=== PATIENT | male | born 1930 | race Caucasian/White ===

== ENCOUNTER 2019-12-01 09:03 | Day surgery (SDC) | payer MEDICARE, OTHER ==
[~2019-12-01 09:03] MED LIST: CHONDR SU A NA/HYALUR INTRAOC KIT (SURGICARE) ONE; EPINEPHRINE INJ/PF 1 MG/1 ML AMPULE ONE; KETOROLAC TROMETHAMINE 0.45% 4 DROP/0.4 ML DROPERETTE OS PRN; LIDOCAINE 1%/PHENYLEPHRINE 1.5% 1 ML VIAL ONE
[2019-12-01] MEDS ORDERED: ONDANSETRON HCL INJ/PF 4 MG/2 ML SDV ONE (09:09)
[2019-12-01] MEDS ORDERED: MIDAZOLAM 2 MG/2 ML INJ ONE (09:10)
[2019-12-01] MEDS ORDERED: FENTANYL CITRATE INJ/PF 100 MCG/2 ML AMPUL ONE (09:10)
[2019-12-01] MEDS: TETRACAINE HCL 0.5% OPH SOLN 4 ML OS PRN ×3 (09:45→10:16)
[2019-12-01] MEDS: TROPICAMIDE 1% OPH SOLN 15 ML OS PRN ×3 (09:45→10:12)
[2019-12-01] MEDS: CYCLOPENTOLATE 0.2%/PHENYLEPHRINE 1% OPH SOLN 2 ML OS PRN ×3 (09:46→10:12)
[2019-12-01] MEDS: BESIFLOXACIN HCL 0.6% OPH SUSP 5 ML BOTTLE OS PRN ×4 (09:46→10:38)
[2019-12-01] MEDS: DORZOLAMIDE HCL 2%/TIMOLOL MALEAT 0.5% OPH SOLN 10 ML OS PRN ×2 (10:38)
--- NOTE | 2019-12-01 12:01 | Operative Report ---
Operative Report-[facility] Operative Report: DATE OF SURGERY: 12/01/2019 PREOPERATIVE DIAGNOSIS: Cataracts, left eye POSTOPERATIVE DIAGNOSIS: Cataract, left eye OPERATION: Cataract extraction with insertion of an IOL of the left eye. Intraocular Lens Model: [23.0 sn60wf] Reason for surgery is difficulty seeing road signs SURGEON: Dorian Rodriguez MD ANESTHESIA: Topical PROCEDURE: After obtaining appropriate consent, the patient's left eye was prepped and draped in a sterile fashion as well as the surgeon in the sterile manner and cataract surgery was started. First a paracentesis blade was used to make a side-port incision. Viscoelastic was used to inflate the anterior chamber. Next a 2.4 mm incision was made with a 2.4 mm blade, clear corneal temporarily. A continuous capsulorrhexis was made using a cystotome and Utrata forceps. Following this hydrodissection was carried out to make the lens fully loose and mobile and it was rotated 90 degrees. Following this, a divide and conquer technique was used to phacoemulsify the lens. The remaining cortex was removed with an irrigation/aspiration. Provisc was instilled into the capsular bag to inflate the bag.The intraocular lens was placed. The remaining viscoelastic material was removed with irrigation/aspiration. Following this, the incision was found to be watertight. Besivance and Cosopt was instilled into the eye and a protective shield was placed over the eye. The patient was returned to the postoperative recovery in a stable condition.
== END 2019-12-01 11:12 | disposition home or self-care (01) ==
LOC: SC 09:03
PROVIDERS: ATTEND Internal Medicine
DX: H25.13 Age-related nuclear cataract, bilateral (principal); H35.3132 Nonexudative age-related macular degeneration, bilateral, intermediate dry stage; H40.1131 Primary open-angle glaucoma, bilateral, mild stage; H52.4 Presbyopia; H57.03 Miosis; I10 Essential (primary) hypertension; E03.9 Hypothyroidism, unspecified; M32.9 Systemic lupus erythematosus, unspecified; L40.50 Arthropathic psoriasis, unspecified; I25.2 Old myocardial infarction; D64.9 Anemia, unspecified; J45.909 Unspecified asthma, uncomplicated; N40.0 Benign prostatic hyperplasia without lower urinary tract symptoms; Z87.891 Personal history of nicotine dependence; Z79.899 Other long term (current) drug therapy
CPT/HCPCS: 66984; V2632; J2250; J3490 ×2; A9270; J0171; J2405; 142; J3010

== ENCOUNTER 2019-12-22 09:38 | Day surgery (SDC) | payer MEDICARE, OTHER ==
[~2019-12-22 09:38] MED LIST changes: +KETOROLAC TROMETHAMINE 0.45% 4 DROP/0.4 ML DROPERETTE OD PRN; -KETOROLAC TROMETHAMINE 0.45% 4 DROP/0.4 ML DROPERETTE OS PRN
[2019-12-22] MEDS: TETRACAINE HCL 0.5% OPH SOLN 4 ML OD PRN ×3 (10:22→11:04)
[2019-12-22] MEDS: TROPICAMIDE 1% OPH SOLN 15 ML OD PRN ×3 (10:22→10:55)
[2019-12-22] MEDS: CYCLOPENTOLATE 0.2%/PHENYLEPHRINE 1% OPH SOLN 2 ML OD PRN ×3 (10:23→10:55)
[2019-12-22] MEDS: BESIFLOXACIN HCL 0.6% OPH SUSP 5 ML BOTTLE OD PRN ×5 (10:23→11:28)
[2019-12-22] MEDS ORDERED: MIDAZOLAM 2 MG/2 ML INJ ONE (10:36)
[2019-12-22] MEDS ORDERED: TRYPAN BLUE 0.06 % OPH SOLN 0.5 ML DISP.SYRIN ONE (10:42)
[2019-12-22] MEDS: DORZOLAMIDE HCL 2%/TIMOLOL MALEAT 0.5% OPH SOLN 10 ML OD PRN ×2 (11:28)
--- NOTE | 2019-12-22 14:01 | Operative Report ---
Operative Report-[facility] Operative Report: DATE OF SURGERY: 12/22/2019 PREOPERATIVE DIAGNOSIS: Cataract, right eye POSTOPERATIVE DIAGNOSIS: Cataract, right eye OPERATION: Cataract extraction with insertion of an IOL of the right eye. Intraocular Lens Model: [23.0 sn60wf] Reason for surgery was difficulty with balance between the eyes SURGEON: Dorian Rodriguez MD ANESTHESIA: Topical PROCEDURE: After obtaining appropriate consent, the patient's right eye was prepped and draped in a sterile fashion as well as the surgeon in the sterile manner and cataract surgery was started. First a paracentesis blade was used to make a side-port incision. Viscoelastic was used to inflate the anterior chamber. Next a 2.4 mm incision was made with a 2.4 mm blade, clear corneal temporarily. A continuous capsulorrhexis was made using a cystotome and Utrata forceps. Following this hydrodissection was carried out to make the micky fully loose and mobile and it was rotated. Following this, a divide and conquer technique was used to phacoemulsify the micky. The remaining cortex was removed with an irrigation/aspiration. Provisc was instilled into the capsular bag to inflate the bag. The intraocular lens was placed. The remaining viscoelastic material was removed with irrigation/aspiration. Following this, the incision was found to be watertight. Besivance and Cosopt was instilled into the eye and a protective shield was placed over the eye. The patient was reurned to the postoperative recovery in a stable condition.
== END 2019-12-22 12:03 | disposition home or self-care (01) ==
LOC: SC 09:38
PROVIDERS: ATTEND Internal Medicine
DX: H25.11 Age-related nuclear cataract, right eye (principal); H57.03 Miosis; H40.1131 Primary open-angle glaucoma, bilateral, mild stage; Z96.1 Presence of intraocular lens; E03.9 Hypothyroidism, unspecified; L40.50 Arthropathic psoriasis, unspecified; N40.0 Benign prostatic hyperplasia without lower urinary tract symptoms; M32.9 Systemic lupus erythematosus, unspecified; I11.0 Hypertensive heart disease with heart failure; I50.9 Heart failure, unspecified; J44.9 Chronic obstructive pulmonary disease, unspecified; D64.9 Anemia, unspecified; I25.2 Old myocardial infarction; E78.00 Pure hypercholesterolemia, unspecified; Z87.891 Personal history of nicotine dependence; R01.1 Cardiac murmur, unspecified
CPT/HCPCS: 66984; V2632; J2250; J3490 ×2; A9270; J0171; 142